=== PATIENT | male | born 1960 | race African-American/Black ===

== ENCOUNTER 2019-08-27 13:11 | Emergency (ER) | payer OTHER ==
[~2019-08-27] VITALS: Ht 182.9 cm; Wt 102.0 kg
[2019-08-27 13:33] VITALS: BP 128/63
[2019-08-27] MEDS ORDERED: FLUORESCEIN SODIUM 1MG/STRIP BOTHEYE ONE (17:45)
[2019-08-27] MEDS ORDERED: TETRACAINE 0.5% OPHTH DROPS 4ML BOTHEYE ONE (17:45)
== END 2019-08-27 18:49 | disposition home or self-care (01) ==
LOC: ER 15:48
DX: H57.11 Ocular pain, right eye (principal)
CPT/HCPCS: 99283